=== PATIENT | female | born 2000 | race Caucasian/White ===

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

== ENCOUNTER → 2021-01-26 08:44 | Outpatient (BNVA) | payer OTHER, MEDICAID, SELFPAY | PROVIDERS: Family Provider Family Medicine; PCP Family Medicine; Visit Provider Obstetrics & Gynecology | DX: Z30.9 Encounter for contraceptive management, unspecified (principal) | CPT/HCPCS: 81025 ==

== ENCOUNTER → 2021-07-29 10:29 | Outpatient (BNVA) | payer OTHER, MEDICAID, SELFPAY | PROVIDERS: Family Provider Family Medicine; Visit Provider Obstetrics & Gynecology | DX: N64.52 Nipple discharge (principal) | CPT/HCPCS: 84146; 84443; 84702 ==

== ENCOUNTER 2021-10-01 08:05 | Outpatient (CLI) | payer MEDICAID, SELFPAY ==
--- NOTE | 2021-10-01 08:00 | MR_ITS ---
WS: [id number] MRI HEAD WITH CONTRAST TECHNIQUE: Sagittal T1, T2 axial, T2 axial FLAIR, axial susceptibility weighted imaging, axial diffus ion weighted images, and coronal T2 images were obtained. Pre and post-T1 axial and post T1 coronal i mages. ADC and FSPGR images. CLINICAL INFORMATION: R79.89 - Other specified abnormal findings of blood chemi... COMPARISON: CT 2019 FINDINGS: Tiny focus of hypoenhancement in the LEFT aspect of the pituitary measuring 2 mm may repres ent a small microadenoma. This can be further evaluated with pituitary protocol with dynamic contrast . Recommend correlation with pituitary function studies. No other suspicious findings. No evidence of suprasellar mass. No evidence of restricted diffusion to suggest acute ischemia. Ventricular system and basal cisterns are patent. No suspicious intracranial signal abnormalities. Normal blanco-white differentiation. Antonette l posterior fossa. Normal vascular flow voids at the skull base. No extra-axial fluid collections. No evidence of mass or mass effect. Mild mucosal thickening in the ethmoid air cells. Mastoid air cells are well aerated. No hemosiderin on the susceptibly weighted images. Normal optic chiasm and pituitary infundibulum. No rmal cavernous sinuses and Meckel's cave. MR/MR head wo/w con [id number] IMPRESSION: 1. Tiny focus of hypoenhancement in the LEFT aspect of the pituitary measuring 2 mm suspicious for a small microadenoma. This can be further evaluated with h igh-resolution pituitary protocol with dynamic contrast enhancement. Recommend correlation with pituitary function studies. 2. No other suspicious findings.
[2021-10-01] MEDS: gadobenate dimeglumine 20 mL vial IV (08:52)
== END 2021-10-01 08:06 | disposition home or self-care (01) ==
LOC: RAD 08:06
PROVIDERS: Visit Provider Obstetrics & Gynecology
DX: R79.89 Other specified abnormal findings of blood chemistry (principal)
CPT/HCPCS: 70553

== ENCOUNTER → 2021-10-30 10:24 | Outpatient (BNVA) | payer MEDICAID, SELFPAY | PROVIDERS: Visit Provider Obstetrics & Gynecology | DX: Z30.9 Encounter for contraceptive management, unspecified (principal); Z30.432 Encounter for removal of intrauterine contraceptive device | CPT/HCPCS: 87070; 87205 ==

== ENCOUNTER 2023-11-04 13:27 | Outpatient (CLI) | payer MEDICAID, SELFPAY ==
--- NOTE | 2023-11-04 13:34 | USR_ITS ---
PROCEDURE INFORMATION: Exam: US First Trimester, Transabdominal Exam date and time: 11/04/2023 1:56 PM Age: 23 years old Clinical indication: Screening exam; Routine US, uterus; Additional info: Supervision of normal 1st /1st trimester LABS AND CLINICAL REPORTS: Gestational age (Established): 15 w 5 d Estimated due date (Established): 04/22/2024 TECHNIQUE: Imaging protocol: Real-time transabdominal obstetrical ultrasound of the maternal pelvis and a first trimester , less than 14 weeks 0 days, with image documentation. COMPARISON: US gall bladder [id number] 04/05/2019 3:16 PM FINDINGS: GESTATION: Gestation: Single live intrauterine gestation. Yolk sac is unremarkable. Embryonic/ heart rate: 147 bpm. presentation and position: Breech. Extra-embryonic membranes/Placenta: Unremarkable. No subchorionic bleed. Placenta is anterior. Amniotic/Chorionic fluid: Amniotic and extra-amniotic fluid are normal for gestational age. BIOMETRY: Gestational age (AUA): 16 weeks 0 days Estimated due date (AUA): 04/20/2024 Biparietal diameter (BPD): 3.34 cm 76% Head circumference (HC): 12.24 cm 58% Abdominal circumference (AC): 9.76 cm 57% Femur length (FL): 1.82 cm 32% MATERNAL: Uterus: Unremarkable. Cervix: Cervical length measures 4.3 cm. Right ovary/adnexa: Obscured by lack of adequate acoustic window. Left ovary/adnexa: Obscured by lack of adequate acoustic window. Intraperitoneal space: No intraperitoneal free fluid. US/US OB <= 14 weeks fetus [id number] IMPRESSION: Single live intrauterine gestation with estimated age of 16 weeks 0 days.
== END 2023-11-04 13:28 | disposition home or self-care (01) ==
LOC: RAD 13:28
PROVIDERS: Visit Provider Family Medicine
DX: Z34.01 Encounter for supervision of normal first pregnancy, first trimester (principal)
CPT/HCPCS: 76801

== ENCOUNTER 2023-12-07 07:00 | Outpatient (CLI) | payer MEDICAID, SELFPAY ==
--- NOTE | 2023-12-07 07:04 | USR_ITS ---
PROCEDURE INFORMATION: Exam: US After First Trimester, Transabdominal Exam date and time: 12/07/2023 7:13 AM Age: 23 years old Clinical indication: Screening exam; Routine US, uterus; Additional info: Anatomy TECHNIQUE: Imaging protocol: Real-time transabdominal obstetrical ultrasound of the maternal pelvis and a second or third trimester with image documentation. COMPARISON: US OB <= 14 weeks fetus [id number] 11/04/2023 1:56 PM FINDINGS: Gestation: Single live intrauterine gestation. heart rate: 150 bpm. presentation and position: Cephalic. Placenta: Unremarkable. No subchorionic bleed. Placenta is anterior. Amniotic fluid (Qualitative): Amniotic fluid is normal for gestational age. ANATOMY: midline falx: Normal cerebellum: Normal lateral ventricles: Normal cisterna magna: Normal choroid plexus: Normal face: Not well visualized heart four-chamber view, heart size and position: Normal heart right ventricular outflow tract: Normal heart left ventricular outflow tract: Normal diaphragm: Normal kidneys: Normal stomach: Normal urinary bladder: Normal spine: Now well visualized Umbilical cord and insertion: Normal. Normal 3 vessel cord upper limbs: Normal lower limbs: Normal external genitalia: Normal BIOMETRY: Gestational age (AUA): 20 weeks 2 days Estimated due date (AUA): 04/23/2024 Estimated weight: 333.45 g. EFW by AC, BPD, FL, HC, [place] 1985, 29% percentile Biparietal diameter (BPD): 4.76 cm. EGA (BPD) is 20 w 3 d. 47.9 % percentile Head circumference (HC): 18.15 cm. EGA (HC) is 20 w 4 d. 47.4 % percentile Abdominal circumference (AC): 15.13 cm. EGA (AC) is 20 w 2 d. 41.3 % percentile Femur length (FL): 3.13 cm. EGA (FL) is 19 w 5 d. 18.9 % percentile HC/AC: 1.2. (Normal range: 1.07 - 1.25) FL/HC: 17.25. (Normal range: 16.54 - 19.94) FL/BPD: 65.76 FL/AC: 20.69 MATERNAL: Uterus: Unremarkable. Cervix: Unremarkable closed cervix measuring 4.9 cm in length. Right ovary/adnexa: Obscured by lack of adequate acoustic window. Left ovary/adnexa: Obscured by lack of adequate acoustic window. Intraperitoneal space: No intraperitoneal free fluid. US/US OB >= 14 weeks fetus [id number] IMPRESSION: Single live intrauterine gestation with estimated age of 20 weeks 2 days and weight of 333.45 g.
== END 2023-12-07 07:01 | disposition home or self-care (01) ==
LOC: RAD 07:02
PROVIDERS: PCP Family Medicine; Visit Provider Family Medicine
DX: Z34.02 Encounter for supervision of normal first pregnancy, second trimester (principal)
CPT/HCPCS: 76805

== ENCOUNTER 2024-04-15 23:33 | Outpatient (CLI) | payer MEDICAID, SELFPAY ==
[2024-04-15 23:43] VITALS: BP 133/88; PULSE 80; TEMP 36.4
[2024-04-16 00:39] VITALS: RESP 16
[2024-04-16 00:40] VITALS: BMI 30.5
[2024-04-16 01:44] VITALS: BP 118/73; PULSE 73; TEMP 36.1
[2024-04-16 02:11] VITALS: BP 118/73; PULSE 73; RESP 16; TEMP 36.1; O2SAT 100
== END 2024-04-16 02:11 | disposition home or self-care (01) ==
LOC: OPOB 23:33 → OBGYN 23:35
PROVIDERS: PCP Family Medicine; Visit Provider Family Medicine
DX: O26.899 Other specified pregnancy related conditions, unspecified trimester (principal); Z3A.00 Weeks of gestation of pregnancy not specified; R10.9 Unspecified abdominal pain
CPT/HCPCS: 59025; 99211

== ENCOUNTER 2024-04-16 09:26 | Outpatient (CLI) | payer MEDICAID, SELFPAY ==
[2024-04-16 09:26] VITALS: BMI 29.9
[2024-04-16 09:40] VITALS: BP 133/91; PULSE 96
[2024-04-16 09:58] VITALS: BP 142/65; PULSE 91
[2024-04-16 11:14] VITALS: BP 122/69; PULSE 92
[2024-04-16 11:29] VITALS: BP 121/80; PULSE 87
[2024-04-16 11:59] VITALS: BP 119/82; PULSE 94
[2024-04-16 12:19] VITALS: BP 119/82; PULSE 94; RESP 16; O2SAT 98
== END 2024-04-16 12:19 | disposition home or self-care (01) ==
LOC: OPOB 09:29 → OBGYN 09:30
PROVIDERS: PCP Family Medicine; Visit Provider Family Medicine
DX: O26.859 Spotting complicating pregnancy, unspecified trimester (principal); Z3A.00 Weeks of gestation of pregnancy not specified; R10.9 Unspecified abdominal pain
CPT/HCPCS: 59025; 99211

== ENCOUNTER 2024-04-16 17:32 | Outpatient (CLI) | payer MEDICAID, SELFPAY ==
[2024-04-16 18:01] VITALS: RESP 16
[2024-04-16 18:14] LABS: Actim Prom Negative
[2024-04-16 18:30] VITALS: BP 122/74; PULSE 71; RESP 16; TEMP 36.7; O2SAT 99
== END 2024-04-16 18:40 | disposition home or self-care (01) ==
LOC: OPOB 17:32 → OBGYN 17:33
PROVIDERS: PCP Family Medicine; Visit Provider Family Medicine
DX: O26.899 Other specified pregnancy related conditions, unspecified trimester (principal); Z3A.00 Weeks of gestation of pregnancy not specified; N89.8 Other specified noninflammatory disorders of vagina
CPT/HCPCS: 84112

== ENCOUNTER 2024-04-17 10:04 | Inpatient (IN) | payer MEDICAID, SELFPAY ==
[2024-04-17] VITALS (44 sets, daily range): BP systolic 103–142; BP diastolic 58–92; PULSE 67–130; RESP 20; TEMP 36.2–37.2; O2SAT 92–99; BMI 29.4
[2024-04-17 04:25] LABS: Basophils # 0.1 10^3/uL (0.0-0.1); Basophils % 0.2 %; Hematocrit 33.8 % (36-47); Lymphocytes # 1.6 10^3/uL (0.8-4.8); Lymphocytes % 7.6 %; Mean Corpuscular HGB Conc 33.4 g/dL (30-55); Mean Corpuscular Volume 83.7 fl (85-98); Mean Platelet Volume 11.7 fL (7.4-10.4); Monocytes % 5.1 %; Neutrophils # 17.56 10^3/uL (1.8-7.7); Neutrophils % 86.4 %; Nucleated Red Blood Cells % 0 %; Platelet Count 286 10^3/cmm (157-399); Red Blood Count 4.04 10^6/uL (3.85-5.65); Red Cell Distribution Width 13.7 % (12.1-15.1); White Blood Count 20.34 10^3/uL (3.29-11.43)
[2024-04-17] MEDS: ondansetron 2 mg/ML SDV 2 mL 4 MG IVP ×2 (04:46→16:51)
[2024-04-17] MEDS: acetaminophen 325 mg Tablet 650 MG PO (07:01)
--- NOTE | 2024-04-17 08:24 | PM.OBGYHP ---
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 Contractions increased overnight and she came in. PMHx unremarkable. course generally uncomplicated. Significant for A negative blood type- she did receive rhogam. Denies LOF, vaginal bleeding. Good movement. care was good and starting in the first trimester. Present Details : 1 Para: 0 Labs Blood type OB HPI: A (-) negative Rubella: Immune RPR: Negative GBS: Negative HBsAG: Negative Other Lab Information: Antibody screen negative x 2 GC/Chlamydia negative INitial H/H 13.8/39.7 UCx wnl Hep C ab negative HIV negative VZV immune 1hr GTT passed (85) Pap smear NILM 3rd trimester H/H 11.4/34.2 Review of Systems Const: Denies: fever(s) or chills Card: Denies: chest pain or palpitations Resp: Denies: dyspnea, productive cough or non-productive cough GI: Denies: nausea or vomiting Skin/Breast: Denies: rash or pruritus Medications/Allergies Home Medications ?Medication ?Instructions ?Recorded ?Confirmed ?Last Taken ?Type vit no.95-ferrous 1 tab PO DAILY 04/17/24 04/17/24 Unknown History fumarate 28 mg-folic acid 800 mcg tablet () Allergies Allergy/AdvReac Type Severity Reaction Status Date / Time amoxicillin Allergy ALGY-Hives Verified 04/17/24 04:35 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: Medical History History of ovarian cyst Impetigo any site Cellulitis Surgical History Hx of tonsillectomy 2016 H/O shoulder surgery right shoulder, 2017, labrum repair Family History Grandmother CAD (coronary artery disease) maternal and paternal Diabetes maternal Ovarian cyst maternal and paternal Father Hypertension Family/Other Ovarian cyst paternal aunt Denies family history of Clotting disorder Hyperlipidemia Chronic kidney disease (CKD) Anesthesia complication Family history of thyroid problem Bleeding disorder Cancer Social History Smoking and tobacco/nicotine status: never used tobacco/nicotine Substance/Drug Use: never Other Female Reproductive History: Hx Age of Menarche: 13 History History History 1 Term 0 0 Miscarriages/Ectopic 0 Living Children 0 Vitals/I&O/Wt Last Vital Signs Pulse 88 04/17/24 08:03 BP 119/74 04/17/24 08:03 O2 Del Method Room Air 04/17/24 03:38 Weight last 48 hrs Weight 166 lb Physical Exam Const: COMMON NORMALS: no acute distress, healthy appearing and alert Resp: COMMON NORMALS: normal respiratory effort and clear to auscultation bilaterally Cardio: COMMON NORMALS: no JVD, regular rate, regular rhythm and No murmurs present (Cardio) : OTHER: Gravid S=D Initial SVE per RN -3, vertex Extremity: NARRATIVE EXTREMITY EXAM: trace LE pitting edema Data 04/17/24 03:50 Results Labs OB ([facility]): Blood Type A Negative 04/17/24 Antibody Screen Negative 04/17/24 Hct 33.8 % (36-47) L 04/17/24 Hgb 11.30 g/dL (11.27-16.99) 04/17/24 Rho(D) Type Rh negative 04/17/24 Plt Count 286 10^3/cmm (157-399) 04/17/24 OB Ultrasound 12/07/23 Anatomy US complete with EFW 29% A&P Assessment and plan (1) Term : (2) Spontaneous onset of labor: Plan 23yo at 39w2d presenting for labor. Admit for labor. Initial SVE -3 Routine admission CBC, blood typing Intermittent EFM as long as Category I FHT. Fentanyl protocol, may have epidural if desired. AROM at 0832 with clear fluid- mother and baby tolerated well. Plan of care discussed with patient and agreeable to proceed PDMP PDMP Reviewed: Not Reviewed Attestations Medical Necessity Statement*: Millie Serrano's hospital stay will require greater than 2 midnights for labor and delivery and care. Coding Level of Care Code Acute Code for Chg Fwd Diagnoses Term Z34.90 Spontaneous onset of labor
[2024-04-17] MEDS: fentaNYL 50 mcg/mL INJ 2mL IVP (10:46)
[2024-04-17] MEDS: sodium chloride 0.9% 1,000 ML 999 ML IV ×2 (11:35→12:36)
--- NOTE | 2024-04-17 12:51 | ANES.PREANE2 ---
Pre-Anesthetic Assessment Height/Weight: Height 1.6 m Weight 75.296 kg Temp Pulse Resp BP Pulse Ox O2 Del Method 97.2 F L 120 H 20 H 141/78 99 Room Air 04/17/24 10:14 04/17/24 12:48 04/17/24 10:46 04/17/24 12:48 04/17/24 12:43 04/17/24 03:38 Preop Diagnosis: Labor pain MANUEL Was Beta Kellie taken within 24 hours: N/A Was Clonidine taken within 24 hours: N/A Social No alcohol and No tobacco Exam alert, oriented x 3, clear to auscultation bilaterally and regular rate & rhythm Airway Submandibular: within normal limits Cervical ROM: within normal limits Mallampati: Class II Dentition: full History/ROS No significant history except as noted and No significant complaints Pulmonary None reported CV/HEM None reported None reported Hepatic None reported GI None reported Metabolic None reported Musc/skel None reported Neuropsych None reported Anesthetic Plan ASA status: 2 Anesthesia: Anesthesia Evaluation and Regional (specify below) Other: MANUEL Risk of > 500 ml blood loss (7ml/kg in children): No Medications/Allergies Home Medications ?Medication ?Instructions ?Recorded ?Confirmed ?Last Taken ?Type vit no.95-ferrous 1 tab PO DAILY 04/17/24 04/17/24 Unknown History fumarate 28 mg-folic acid 800 mcg tablet () Allergies Allergy/AdvReac Type Severity Reaction Status Date / Time amoxicillin Allergy ALGY-Hives Verified 04/17/24 04:35 Current Medications Generic Name Dose Route Start Last Admin Trade Name Freq PRN Reason Stop Dose Admin Acetaminophen 650 mg 04/17/24 03:35 04/17/24 07:01 Acetaminophen 325 Mg Tablet PO 650 mg Q6H PRN Administration Mild pain or temp > 100.4 Fentanyl 25 - 100 mcg 04/17/24 10:39 04/17/24 10:46 Fentanyl 50 Mcg/Ml Inj 2ml IVP 25 mcg Q1H PRN Administration SEVERE PAIN Sodium Chloride 1,000 mls @ 999 mls/hr 04/17/24 11:24 04/17/24 11:35 Sodium Chloride 0.9% IV 999 mls/hr .Q1H1M PRN Administration See label comments Ondansetron HCl 4 mg 04/17/24 03:35 04/17/24 04:46 Ondansetron 2 Mg/Ml Sdv 2 Ml IVP 4 mg Q4H PRN Administration NAUSEA AND VOMITING PFSH Anesthesia Medical History History of ovarian cyst Impetigo any site Cellulitis Surgical History Hx of tonsillectomy 2016 H/O shoulder surgery right shoulder, 2017, labrum repair Family History Grandmother CAD (coronary artery disease) maternal and paternal Diabetes maternal Ovarian cyst maternal and paternal Father Hypertension Family/Other Ovarian cyst paternal aunt Denies family history of Clotting disorder Hyperlipidemia Chronic kidney disease (CKD) Anesthesia complication Family history of thyroid problem Bleeding disorder Cancer Social History Smoking and tobacco/nicotine status: never used tobacco/nicotine Substance/Drug Use: never Female Reproductive History : 1 Data Anesthesia 04/17/24 03:50 Short CBC 04/17/24 Range/Units 03:50 WBC 20.34 H (3.29-11.43) 10^3/uL Hgb 11.30 (11.27-16.99) g/dL Hct 33.8 L (36-47) % MCV 83.7 L (85-98) fl Plt Count 286 (157-399) 10^3/cmm Neut % (Auto) 86.4 % Neut # (Auto) 17.56 H (1.8-7.7) 10^3/uL Blood Bank 04/17/24 03:50 Blood Type A Negative Rho(D) Type Rh negative Antibody Screen Negative Cardiac Studies: No Data to Display
--- NOTE | 2024-04-17 12:52 | ANES.PROC ---
Anesthesia Procedures Procedure/Date: 04/17/24 Epidural: Time Out Performed: Yes Consents Signed: Procedure Consent Consent: requested by attending/covering physician and from patient Lumbar Level: L3-L4 Epidural position: sitting Epidural procedure: sterile prep of area, 1% lidocaine to numb the area, 18 g needle, neg for paresthesia, test dose given, 1.5% xylocaine 1:200k epi (5cc), placed PCEA, no systemic response, sterile dressing applied, L.U.D. no apparent complications and 0.2% Ropiavacaine @ mls/hr (13cc/hour) Additional Comments: Pt tolerated well
[2024-04-17] MEDS: ROPivacaine syringe 100 MG/50 ML SYRINGE 10 MG EPIDURAL (12:55)
[2024-04-17] MEDS: dextrose 5%-lactated ringers 1,000 ML 125 ML IV ×2 (13:44→21:56)
[2024-04-17] MEDS: calcium carbonate 500 mg Chew Tablet 1000 MG PO (13:49)
[2024-04-17] MEDS: alum-mag-hydroxide-sime 30 mL UDC PO (15:06)
[2024-04-17] MEDS: ROPivacaine syringe 100 MG/50 ML SYRINGE 13 MG EPIDURAL ×2 (19:06→22:05)
[2024-04-17] MEDS: oxytocin 30 UNIT/500 ML BAG IV (20:30)
[2024-04-17] MEDS: lactated ringers 1,000 ML 999 ML IV (22:45)
[2024-04-18] VITALS (39 sets, daily range): BP systolic 104–138; BP diastolic 57–93; PULSE 76–134; RESP 16–17; TEMP 36.4–38.1; O2SAT 90–98
[2024-04-18] MEDS: ROPivacaine syringe 100 MG/50 ML SYRINGE 13 MG EPIDURAL (00:06)
--- NOTE | 2024-04-18 00:10 | P.PN_ITS ---
[facility] [employer] Subjective 2 Subjective: Interval history: Patient with AROM at approximately 8:30 AM with small amount of clear fluid. Mother baby tolerated procedure well. Following throughout afternoon with slow labor progress to SVE /-3. She did receive epidural for anesthesia. After epidural anesthesia was noted to have intermittent periods of minimal variability and intermittent late decelerations that resolved with position changes and fluid bolus. Following she progressed to SVE of 9/+1. Was called at approximately 11:20 PM with reports of recurrent late decelerations with moderate variability that did not resolve with fluid bolus and position change. I then began en route. On presentation to L&D noted heart tones to have moderate variability and intermittent late decelerations. Contractions noted to be every 2 to 3 minutes. Just prior to midnight was called to bedside and noted to have small amount of bleeding with no significant change noted to SVE. At this time I called Dr. Munguia to notify of patient and potential need for progression to surgical delivery. He began en route. Prior to his arrival noted maternal abdomen to be exquisitely tender to touch diffusely. Discussed with patient at this time recommendation for delivery by and patient agreeable to plan of care. Shortly after Dr. Munguia arrived and he was consulted for . Labor: Station: +2 Amniotic Membrane Status: Ruptured Monitor Mode: External Contraction Pattern: Irregular Vitals/I&O/Wt Last Vital Signs Temp 98.8 F 04/17/24 23:17 Pulse 134 H 04/18/24 00:52 Resp 20 H 04/17/24 10:46 BP 137/93 04/18/24 00:52 Pulse Ox 99 04/17/24 12:43 O2 Del Method Room Air 04/17/24 03:38 04/17/24 04/17/24 04/18/24 14:59 22:59 06:59 Intake Total 1999 1100.65 / 3100.65 588.5 / 3689.15 Output Total 275 / 275 Balance 1999 825.65 / 2825.65 588.5 / 3414.15 Weight last 48 hrs Weight 166 lb Physical Exam 2 Urinary Catheter Management: Posey: Cath Placed During This Visit: yes Reason for Continuing Indwelling Catheter: Required Immobilization for Trauma or Surgery or Anesthesia Urinary Catheter Date of Insertion: 04/17/24 Urinary Catheter Time of Insertion: 13:37 Data 04/17/24 03:50 A&P Assessment and plan (1) Spontaneous onset of labor: (2) Term : (3) intolerance to labor, delivered, current hospitalization: (4) Arrest of dilation, delivered, current hospitalization: (5) Placental abruption: Plan Consulted Dr. Munguia for delivery due to intolerance of labor, arrest of dilation and suspected placental abruption. Discussed plan of care with patient and agreeable to proceed. PDMP PDMP Reviewed: Not Reviewed Attestations 2 Medical Necessity Statement*: Millie Serrano's hospital stay will require greater than 2 midnights for delivery and care. Coding Level of Care Code Acute Code for Chg Fwd Diagnoses Spontaneous onset of labor Term Z34.90 intolerance to labor, delivered, current hospitalization O77.9 Arrest of dilation, delivered, current hospitalization O62.1 Placental abruption O45.90
[2024-04-18] MEDS: sodium chloride 0.9% 1,000 ML 999 ML IV (00:34)
[2024-04-18] MEDS: metoclopramide 5 mg/mL SDV 2 mL 10 MG IVP (00:49)
[2024-04-18] MEDS: citric acid-sodium citrate 30 mL UDC PO (00:49)
[2024-04-18] MEDS: famotidine 20 mg/2 mL INJ IVP (00:49)
[2024-04-18] MEDS: ceFAZolin 2,000 mg SDV 2000 MG IVP (00:50)
--- NOTE | 2024-04-18 01:05 | ANE.PACU2 ---
Inpatient post-anesthesia follow up: Airway intact: Yes Vital signs: Temperature 97.8 F Pulse Rate 87 Respiratory Rate 17 Blood Pressure 122/74 Pulse Oximetry 98 Oxygen Delivery Me thod Room Air Oxygen Flow Rate Fraction of Inspir ed Oxygen Hydration adequate: Yes Nausea and vomiting: No Pain level: 1 Mental status: Baseline Additional Comments: Epidural removed and converted to general for Epidural Start/End: Epidural Start Date: 04/17/24 Epidural Start Time: 12:34 Epidural End Date: 04/18/24 Epidural End Time: 01:08
[2024-04-18] MEDS: clindamycin 900 MG/50 ML PREMIX 100 MG IV (01:10)
[2024-04-18] MEDS: tranexamic acid 1,000 MG/100 ML PREMIX 600 MG IV (01:42)
--- NOTE | 2024-04-18 02:47 | P.OP_ITS ---
Operative Report Date of procedure: April 18, 2024 Pre-op diagnosis: 1. Intrauterine at 39.3 weeks gestation 2. Rh- 3. Arrest of dilation 4. Intrapartum bleeding concerning for placental abruption 5. intolerance of labor Post-op diagnosis: 1. Intrauterine status post primary low-transverse section at 39.3 weeks gestation 2. Rh- 3. Arrest of dilation 4. Placental abruption 5. intolerance of labor 6. Delivery of healthy infant female weighing 6 pounds 7 ounces with Apgars of 1, 9 and 9 Procedure done: Primary low-transverse section Specimens removed/disposition: Placenta discarded Surgeon: Pepe Munguia MD Estimated blood loss (mL): 600 Complications: None Findings: 1. Healthy infant female weighing 6 pounds 7 ounces with Apgars of 1, 9 and 9 2. Intact placenta with moderate to heavy calcifications and findings consistent with placental abruption along approximately 15% of the surface. Brief History: Patient's is a 23-year-old G1 now P1 status post primary low-transverse section. Her was complicated by Rh-. The patient has been receiving care by Dr. Faust. The patient presented to labor and delivery on the morning of 04/17/2024 in spontaneous labor. Please see Dr. Faust's notes for full details. Eventually the patient ended up having recurrent late decelerations followed by increased vaginal bleeding concerning for placental abruption as well as arrest of dilation at 9 cm. Because of these findings it was felt best to proceed with a primary low- transverse section to decrease risk for complications. The patient was in agreement with the plan of care and requested a primary low-transverse section.. Procedure: After informed consent was obtained, the patient was taken to the operating room and the patient was prepped in a normal sterile fashion. The patient had an epidural and anesthesia tried to dose it to provide adequate anesthesia, however the patient did not have adequate anesthesia with initial testing, so the d ecision was made to give general anesthesia. The patient's abdomen was prepped and she was draped in a sterile fashion. The patient was given general anesthesia and at 1:08 AM on 04/18/2024 a Pfannenstiel skin incision was made and carried through to the underlying layer of fascia using a scalpel.? The fascial incision was then extended laterally using curved Mayos.? The fascia was then grasped with Db clamps and the underlying rectus muscles were dissected off taking care to avoid injury to the underlying tissues.? The peritoneum was entered bluntly with one digit.? It was then bluntly.? The bladder blade was placed and the vesicouterine peritoneum was well below the lower uterine segment of the uterus.? The uterine incision was made in the lower uterine segment in a transverse fashion with the scalpel at 1:11 AM on 04/18/2024.? The amniotic membrane was entered bluntly and a small amount of meconium stained fluid was noted.? The head was deep in the pelvis and in the HALIE position. The head was maneuvered upwards and uterine pressure was placed and the 's head delivered without complication at 1:12 AM on 04/18/2024.? There was no nuchal cord.? The mouth and nose were suctioned.? The rest of the infant delivered without difficulty.? The infant had minimal tone and was not breathing upon delivery.? Dr. Oliver was present for the delivery and the was passed and immediately to him and the awaiting nurses for further treatment. The cord was clamped and cut and the was handed to the awaiting pediatric nurses.? The placenta was then manually expressed.? The uterus was exteriorized from the abdomen.? A wet lap was used to clear the uterus of clots and debris.? The bladder blade was reinserted and the uterine incision was closed using 0 chromic in a running locking fashion.? The uterus was noted to be boggy.? A second layer of the same suture was used in the same manner.? The uterus continued to be boggy so TXA was given along with IV Pitocin. Her bleeding decreased after this. Excellent hemostasis was obtained. Next the posterior cul-de-sac was inspected and was cleared of any blood. The gutters were cleared of any further clots and debris and the uterine incision was again inspected and hemostasis was noted.? The subfascial tissue was inspected for hemostasis and the peritoneum was re-approximated using 2-0 plain in a running fashion.? The fascia was then re-approximated using 0 Vicryl in a running fashion.? The subcutaneous tissue was inspected for hemostasis.? Beto's fascia was then re-approximated using 3-0 plain in a running fashion.? Good hemostasis was noted.? The subcutaneous tissue was then re-approximated using a subcuticular stitch.? The patient tolerated the procedure well and was recovered in stable condition.? Estimated blood loss was 600 mL. Urine in the Posey catheter was clear. The patient was taken to recovery in good condition.
[2024-04-18] MEDS: dextrose 5%-lactated ringers 1,000 ML 125 ML IV ×2 (04:53→14:29)
[2024-04-18] MEDS: PRENATAL VIT NO.130/IRON/FOLIC 1 EACH TABLET PO (09:04)
[2024-04-18] MEDS: ketorolac 30 mg/mL INJ IVP ×3 (09:04→20:44)
[2024-04-18] MEDS: clindamycin 600 MG/50 ML PREMIX 100 MG IV ×2 (09:04→16:53)
[2024-04-18] MEDS: ferrous sulfate EC 325 mg Tablet PO ×2 (09:04→19:21)
[2024-04-18] MEDS: docusate sodium 100 mg Capsule PO ×2 (09:04→19:21)
[2024-04-18] MEDS: simethicone 80 mg Chew PO ×2 (11:25→19:22)
[2024-04-18] MEDS: acetaminophen 325 mg Tablet 650 MG PO (11:41)
[2024-04-18] MEDS: oxyCODONE-APAP 5-325 mg Tablet PO ×2 (13:05→18:26)
[2024-04-18 15:46] LABS: Hematocrit 25.1 % (36-47); Mean Corpuscular HGB Conc 34.7 g/dL (30-55); Mean Corpuscular Hemoglobin 28.6 pg (27-33); Mean Corpuscular Volume 82.6 fl (85-98); Mean Platelet Volume 11.7 fL (7.4-10.4); Platelet Count 218 10^3/cmm (157-399); Red Blood Count 3.04 10^6/uL (3.85-5.65); Red Cell Distribution Width 14.4 % (12.1-15.1); White Blood Count 17.61 10^3/uL (3.29-11.43)
[2024-04-19] VITALS (8 sets, daily range): BP systolic 118–130; BP diastolic 69–74; PULSE 82–96; RESP 15–17; TEMP 36.5–36.6; O2SAT 98
[2024-04-19] MEDS: clindamycin 600 MG/50 ML PREMIX 100 MG IV (02:01)
[2024-04-19] MEDS: oxyCODONE-APAP 5-325 mg Tablet PO ×5 (02:02→22:08)
[2024-04-19] MEDS: PRENATAL VIT NO.130/IRON/FOLIC 1 EACH TABLET PO (08:44)
[2024-04-19] MEDS: ibuprofen 800 mg tablet PO ×3 (08:44→20:33)
[2024-04-19] MEDS: docusate sodium 100 mg Capsule PO ×2 (08:44→17:33)
[2024-04-19] MEDS: ferrous sulfate EC 325 mg Tablet PO ×2 (08:44→17:33)
[2024-04-19] MEDS: simethicone 80 mg Chew PO ×2 (08:44→17:34)
--- NOTE | 2024-04-19 16:22 | P.PN_ITS ---
Subjective 2 Subjective: The patient is doing well today. She has been ambulating, voiding, passing gas and tolerating food by mouth. Her pain has increased today overall but is well- managed with current medications. She does feel bloated in general. Her bleeding has been decreasing well. Vitals/I&O/Wt Last Vital Signs Temp 97.8 F 04/19/24 04:15 Pulse 83 04/19/24 15:55 Resp 17 04/19/24 11:43 BP 126/72 04/19/24 15:55 Pulse Ox 98 04/19/24 04:15 O2 Del Method Room Air 04/19/24 04:15 04/19/24 04/19/24 04/19/24 06:59 14:59 22:59 Output Total 600 / 1825 Balance -600 / -1725 Physical Exam 2 Narrative: General: Alert and oriented x3 Cardiac: Regular rate and rhythm without murmurs Lungs: Clear to auscultation bilaterally without wheezes, crackles or rhonchi Abdomen: Soft, mild to moderate tenderness in the right lower quadrant with mild to moderate tenderness over the uterus. The uterus is firm and 2 cm below the umbilicus. Bloating noted in general. Extremities: Trace edema in the bilateral lower extremities Urinary Catheter Management: Posey: Cath Placed During This Visit: yes, but has since been removed by the nurse Reason for Continuing Indwelling Catheter: Decision to DC Catheter Urinary Catheter Date of Insertion: 04/17/24 Urinary Catheter Time of Insertion: 13:37 Date Urinary Catheter Removed: 04/18/24 Time Urinary Catheter Discontinued: 20:54 Data 04/18/24 15:00 A&P Assessment and plan (1) Status post section: The patient is doing well overall status post section done on 04/18/2024. She is having some bloating and her pain has likely increased due to the Duramorph wearing off. Her pain seems to be well-controlled. We will continue to monitor. Her vitals are stable. No signs of infection at this time. Her hemoglobin did drop down to 8.7 and she is on iron. Her bleeding has decreased well. As long as things continue to go well we will plan to discharge home tomorrow. PDMP PDMP Reviewed: Not Reviewed Attestations 2 Medical Necessity Statement*: The patient will need to be hospitalized for greater than 2 midnights due to routine intrapartum and management after section. Coding Level of Care Code Acute Code for Chg Fwd Diagnoses Status post section Z98.891
[2024-04-20 04:31] VITALS: BP 133/78; PULSE 105; RESP 16; TEMP 36.9
[2024-04-20 05:11] VITALS: RESP 18
[2024-04-20] MEDS: simethicone 80 mg Chew PO (05:11)
[2024-04-20] MEDS: oxyCODONE-APAP 5-325 mg Tablet PO ×3 (05:11→13:35)
[2024-04-20] MEDS: PRENATAL VIT NO.130/IRON/FOLIC 1 EACH TABLET PO (08:52)
[2024-04-20] MEDS: ferrous sulfate EC 325 mg Tablet PO (08:52)
[2024-04-20] MEDS: ibuprofen 800 mg tablet PO ×2 (08:52→13:35)
[2024-04-20] MEDS: docusate sodium 100 mg Capsule PO (08:52)
[2024-04-20 09:42] VITALS: RESP 16
[2024-04-20 10:39] VITALS: BP 136/83; PULSE 96; TEMP 36.7
[2024-04-20 13:34] VITALS: BP 124/73; PULSE 82
[2024-04-20 13:35] VITALS: RESP 16; TEMP 36.3; O2SAT 98
== END 2024-04-20 13:50 | disposition home or self-care (01) | DRG 788 ==
LOC: OPOB 10:04 → OBGYN 10:04
PROVIDERS: Family Medicine; Admitting Provider Family Medicine; PCP Family Medicine; Visit Provider Family Medicine
PROC: (CPT 59514; principal; 2024-04-18 00:30)
DX: O26.893 Other specified pregnancy related conditions, third trimester (principal); O76 Abnormality in fetal heart rate and rhythm complicating labor and delivery; O45.93 Premature separation of placenta, unspecified, third trimester; O62.1 Secondary uterine inertia; Z3A.39 39 weeks gestation of pregnancy; Z37.0 Single live birth; Z67.11 Type A blood, Rh negative; Z88.0 Allergy status to penicillin
CPT/HCPCS: 36415; 51702; 59025; 59409; 85025; 85027; 86850; 86900; 96374; 96376; 99211; J0690; J1885; J2274; J2371; J2405; J2590; J2765; J2795; J3010; J3490; J7030; J7120; J7121; J9999

== ENCOUNTER → 2024-04-30 16:00 | Outpatient (BNVA) | payer MEDICAID, SELFPAY | PROVIDERS: PCP Family Medicine; Visit Provider Family Medicine | DX: R10.9 Unspecified abdominal pain (principal); Z39.2 Encounter for routine postpartum follow-up; N39.0 Urinary tract infection, site not specified | CPT/HCPCS: 81000; 87086 ==